=== PATIENT | female | born 1945 | race African-American/Black ===

== ENCOUNTER 2017-01-22 09:52 | Observation (INO) | payer MEDICARE, OTHER ==
[~2017-01-22] VITALS: Ht 165.1 cm; Wt 82.9 kg
[2017-01-22] VITALS (11 sets, daily range): BP systolic 109–140; BP diastolic 59–86; PULSE 65–87; RESP 16–18; TEMP 97.9–98.5; O2SAT 97–99
[~2017-01-22 09:52] MED LIST: AMIT1TAB79 PO; ATEN50TA PO; CARA1TAB6 PO; CHLO25TA2 PO; COQ1100C PO; DIPH25CA PO; ERGO1CAP10 PO; ESTR42.5V VAGINAL; IBUP800T23 PO; LEVO.1 PO; MULT1TAB84 PO; OMEP20TA PO; OXYB10TA PO; POTA10TA2 PO
[2017-01-22 10:30] LABS: AUTOMATED NEUTROPHIL # 2.5 TH/MM3 (1.8-7.7); BASOPHIL # 0.1 TH/MM3 (0-0.2); BASOPHIL % 2.7 % (0.0-2.0); HEMATOCRIT 37.3 % (35.0-46.0); HEMO FLAGS DIFF FINAL; LYMPH % 37.6 % (9.0-44.0); LYMPHOCYTE # 1.9 TH/MM3 (1.0-4.8); MEAN CELL VOLUME 79.9 FL (80.0-100.0); MEAN CORPUSCULAR HEMOGLOBIN 25.8 PG (27.0-34.0); MEAN CORPUSCULAR HGB CONC 32.3 % (32.0-36.0); MONO % 8.4 % (0.0-8.0); NEUT % 50.3 % (16.0-70.0); PLATELET COUNT 239 TH/MM3 (150-450); RED BLOOD COUNT 4.67 MIL/MM3 (4.00-5.30); RED CELL DISTRIBUTION WIDTH 15.2 % (11.6-17.2); WHITE BLOOD COUNT 4.9 TH/MM3 (4.0-11.0)
[2017-01-22] MEDS ORDERED: SODIUM CHLORIDE 0.9% FLUSH 10 ML FLUSH IVF PRN (10:30)
--- NOTE | 2017-01-22 10:32 | PD ---
HPI Chief Complaint: Numbness/Tingling Time Seen by Provider: 09:58 Travel History International Travel<30 days: No Contact w/Intl Traveler<30days: No Traveled to known affect area: No History of Present Illness HPI The patient is a 71-year-old Luz female who presents emergency department for right arm weakness. The patient states she was using electric razor earlier today with a right hand, terminal left aspect of her neck, when her right arm suddenly went limp. The patient felt like she had a "out of body experience ", while looking at her right arm and states she had difficulty using the right arm for approximately 1 minute. The patient states that the inability to use the arm resolved after 1 minute, however, she still has heaviness in the right shoulder and upper extremity. She denies any numbness or tingling to the right upper extremity, but does note a history of cramping of the hands bilateral which are painful. The patient denied any weakness or numbness of the lower extremities and denied any dysarthria. She did complain of mild dizziness during her symptoms which have currently resolved. The patient does have a history of hypertension and borderline hyperlipidemia, denies any history tobacco use, diabetes, CAD, or previous CVA/TIA. The patient 's primary physician is Dr. Contreras. [facility] Past Medical History Arthritis: Yes (RIGHT KNEE) High Cholesterol: Yes Hypertension: Yes Inguinal Hernia: Yes (UMBVILICAL AND INGUINAL) Kidney Stones: Yes Thyroid Disease: Yes ?: Not Tubal Ligation: Yes Past Surgical History Hysterectomy: Yes Social History Alcohol Use: Yes (SOCIALLY) Tobacco Use: No Substance Use: No Allergies-Medications (Allergen,Severity, Reaction): Coded Allergies: Sulfa (Verified Allergy, Severe, HIVES, 01/22/17) Talwin (Verified Allergy, Severe, Hallucinations, 01/22/17) Uncoded Allergies: seldane (Allergy, Severe, 01/07/16) palpitations Reported Meds & Prescriptions Reported Meds & Active Scripts Active Oxybutynin ER 24 HR (Oxybutynin Chloride) 10 Mg Tab 10 Mg PO BID Reported Vitamin D (Ergocalciferol) 50,000 Unit Cap 50,000 Units PO Q 30 DAYS Synthroid (Levothyroxine Sodium) 100 Mcg Tab 100 Mcg PO DAILY Potassium Chloride ER (Potassium Chloride) 10 Meq Tab 10 Meq PO DAILY Elavil (Amitriptyline HCl) 25 Mg Tab 10 Mg PO DAILY Diphenhydramine (Diphenhydramine HCl) 25 Mg Cap 50 Mg PO HS PRN Coq10 (Coenzyme Q10 (Ubidecarenone)) 100 Mg Cap 100 Mg PO DAILY Chlorthalidone 25 Mg Tab 25 Mg PO DAILY Atenolol 50 Mg Tab 50 Mg PO DAILY Carafate (Sucralfate) 1 Gm Tab 1 Gm PO DIRECTED On empty stomach Omeprazole 20 Mg Tab 20 Mg PO DAILY Review of Systems Except as stated in HPI: all other systems reviewed are Neg General / Constitutional: No: Fever Eyes: No: Blurred Vision, Visual changes HENT: Positive: Lightheadedness, No: Headaches, Neck Pain Cardiovascular: No: Chest Pain or Discomfort, Palpitations, Tachycardia Respiratory: No: Shortness of Breath Gastrointestinal: No: Nausea, Vomiting, Abdominal Pain Musculoskeletal: Positive: Weakness Neurologic: Positive: Weakness, Dizziness, Focal Abnormalities, No: Change in Mentation, Slurred Speech, Paresthesia, Sensory Disturbance Physical Exam Narrative GENERAL: Awake, alert, pleasant 71-year-old female who appears her stated age and is in no acute respiratory distress. SKIN: Focused skin assessment warm/dry. HEAD: Atraumatic. Normocephalic. EYES: Pupils equal and round. Pupils are 3 mm bilateral and reactive. EOMs are intact. Patient is able to see fingers at a distance of 2 feet without difficulty. ENT: No nasal bleeding or discharge. Mucous membranes pink and moist. NECK: Trachea midline. No JVD. CARDIOVASCULAR: Regular rate and rhythm. No murmur appreciated. RESPIRATORY: No accessory muscle use. Clear to auscultation. Breath sounds equal bilaterally. GASTROINTESTINAL: Abdomen soft, non-tender, nondistended. No rebound tenderness. MUSCULOSKELETAL: No obvious deformities. No clubbing. No cyanosis. No edema. NEUROLOGICAL: Awake and alert. No obvious cranial nerve deficits. Motor grossly within normal limits. Normal speech. No drift of the upper or lower extremities. Speech is clear, no dysarthria. Smile is symmetric. Tongue is midline. Finger to nose is normal. Gkca-ry-zlig is normal. Visual boogie are symmetric bilaterally. EOMs are intact and patient is able to see fingers at a distance of 2 feet without difficulty. NIHSS 0. PSYCHIATRIC: Appropriate mood and affect; insight and judgment normal. Data Data Last Documented VS Vital Signs Date Time Temp Pulse Resp B/P Pulse Ox O2 Delivery O2 Flow Rate FiO2 01/22/17 10:57 66 16 139/86 98 01/22/17 10:10 Room Air 01/22/17 09:55 98.1 Orders Electrocardiogram (01/22/17 10:16) Prothrombin Time / Inr (Pt) (01/22/17 10:16) Act Partial Throm Time (Ptt) (01/22/17 10:16) Complete Blood Count With Diff (01/22/17 10:16) Comprehensive Metabolic Panel (01/22/17 10:16) Creatine Kinase (Cpk) (01/22/17 10:16) Troponin I (01/22/17 10:16) Ct Brain W/O Iv Contrast(Rout) (01/22/17 10:16) Chest, Single Ap (01/22/17 10:16) Ecg Monitoring (01/22/17 10:16) Iv Access Insert/Monitor (01/22/17 10:16) Oximetry (01/22/17 10:16) Sodium Chloride 0.9% Flush (Ns Flush) (01/22/17 10:30) Aspirin (Aspirin) (01/22/17 11:00) Labs Laboratory Tests Test 01/22/17 10:20 White Blood Count 4.9 TH/MM3 Red Blood Count 4.67 MIL/MM3 Hemoglobin 12.1 GM/DL Hematocrit 37.3 % Mean Corpuscular Volume 79.9 FL Mean Corpuscular Hemoglobin 25.8 PG Mean Corpuscular Hemoglobin 32.3 % Concent Red Cell Distribution Width 15.2 % Platelet Count 239 TH/MM3 Mean Platelet Volume 8.9 FL Neutrophils (%) (Auto) 50.3 % Lymphocytes (%) (Auto) 37.6 % Monocytes (%) (Auto) 8.4 % Eosinophils (%) (Auto) 1.0 % Basophils (%) (Auto) 2.7 % Neutrophils # (Auto) 2.5 TH/MM3 Lymphocytes # (Auto) 1.9 TH/MM3 Monocytes # (Auto) 0.4 TH/MM3 Eosinophils # (Auto) 0.0 TH/MM3 Basophils # (Auto) 0.1 TH/MM3 CBC Comment DIFF FINAL Differential Comment Prothrombin Time 10.3 SEC Prothromb Time International 0.9 RATIO Ratio Activated Partial 25.7 SEC Thromboplast Time Sodium Level 142 MEQ/L Potassium Level 4.1 MEQ/L Chloride Level 103 MEQ/L Carbon Dioxide Level 27.5 MEQ/L Anion Gap 12 MEQ/L Blood Urea Nitrogen 19 MG/DL Creatinine 1.00 MG/DL Estimat Glomerular Filtration 66 ML/MIN Rate Random Glucose 94 MG/DL Calcium Level 9.2 MG/DL Total Bilirubin 0.6 MG/DL Aspartate Amino Transf 46 U/L (AST/SGOT) Alanine Aminotransferase 37 U/L (ALT/SGPT) Alkaline Phosphatase 122 U/L Total Creatine Kinase 154 U/L Troponin I LESS THAN 0.02 NG/ML Total Protein 7.3 GM/DL Albumin 3.0 GM/DL [facility] Medical Decision Making Medical Screen Exam Complete: Yes Emergency Medical Condition: Yes Medical Record Reviewed: Yes Interpretation(s) EKG reveals normal sinus rhythm with a rate of 67. No ischemic changes or ectopy noted. CT of the head without contrast reveals an unremarkable study. Chest x-ray unremarkable Laboratory Tests Test 01/22/17 10:20 White Blood Count 4.9 TH/MM3 Red Blood Count 4.67 MIL/MM3 Hemoglobin 12.1 GM/DL Hematocrit 37.3 % Mean Corpuscular Volume 79.9 FL Mean Corpuscular Hemoglobin 25.8 PG Mean Corpuscular Hemoglobin 32.3 % Concent Red Cell Distribution Width 15.2 % Platelet Count 239 TH/MM3 Mean Platelet Volume 8.9 FL Neutrophils (%) (Auto) 50.3 % Lymphocytes (%) (Auto) 37.6 % Monocytes (%) (Auto) 8.4 % Eosinophils (%) (Auto) 1.0 % Basophils (%) (Auto) 2.7 % Neutrophils # (Auto) 2.5 TH/MM3 Lymphocytes # (Auto) 1.9 TH/MM3 Monocytes # (Auto) 0.4 TH/MM3 Eosinophils # (Auto) 0.0 TH/MM3 Basophils # (Auto) 0.1 TH/MM3 CBC Comment DIFF FINAL Differential Comment Prothrombin Time 10.3 SEC Prothromb Time International 0.9 RATIO Ratio Activated Partial 25.7 SEC Thromboplast Time Sodium Level 142 MEQ/L Potassium Level 4.1 MEQ/L Chloride Level 103 MEQ/L Carbon Dioxide Level 27.5 MEQ/L Anion Gap 12 MEQ/L Blood Urea Nitrogen 19 MG/DL Creatinine 1.00 MG/DL Estimat Glomerular Filtration 66 ML/MIN Rate Random Glucose 94 MG/DL Calcium Level 9.2 MG/DL Total Bilirubin 0.6 MG/DL Aspartate Amino Transf 46 U/L (AST/SGOT) Alanine Aminotransferase 37 U/L (ALT/SGPT) Alkaline Phosphatase 122 U/L Total Creatine Kinase 154 U/L Troponin I LESS THAN 0.02 NG/ML Total Protein 7.3 GM/DL Albumin 3.0 GM/DL Last Impressions Head CT 01/22/17 1016 Signed Impressions: Service Date/Time: Sunday, January 22, 2017 10:35 - CONCLUSION: Unremarkable study. Ann Resendiz MD Differential Diagnosis Differential diagnoses includes TIA, CVA, intracranial hemorrhage, subclavian steal syndrome, transient neurologic deficit, hypercalcemia, hypocalcemia. Narrative Course IV was established, labs were drawn and sent, and the patient was placed on cardiac telemetry monitoring and continuous pulse oximetry monitoring. EKG was ordered and interpreted. CT the brain was obtained. Aspirin was held until CT the brain was performed. The patient stroke scale was 0 upon arrival, therefore , no stroke alert was called. The patient's onset of symptoms were 9:30 AM, however, her stroke scale is 0. CT the brain is negative, therefore, the patient was administered aspirin 325 mg orally. The patient's stroke scale continues to be 0, her right arm weakness has resolved. Calcium sodium levels are unremarkable. I had a discussion with the patient regarding 23 hour observation for echocardiogram and ultrasound of the carotids versus outpatient testing with her primary physician, Dr. Contreras. The patient is concerned because she lives alone, therefore, would prefer 23 hour observation. Therefore , the on-call medical team was paged for 23 hour observation. Patient may benefit from risk factor stratification including lipid panel, ultrasound of the carotids, and echocardiogram. Patient is comfortable with this plan of care. Physician Communication Physician Communication The on-call medical team was paged for 23 hour observation. I discussed the patient with Dr. Xiao who agrees with 23 hour observation. Diagnosis Primary Impression: Transient neurologic deficit Admitting Information Admitting Physician Requests: Observation Condition: Stable Ruben Avendano MD Jan 22, 2017 10:31
[2017-01-22 10:44] LABS: CHLORIDE 103 MEQ/L (98-107); POTASSIUM 4.1 MEQ/L (3.5-5.1); SODIUM (NA) 142 MEQ/L (136-145)
[2017-01-22 10:48] LABS: ANION GAP 12 MEQ/L (5-15); BICARBONATE 27.5 MEQ/L (21.0-32.0); BLOOD UREA NITROGEN 19 MG/DL (7-18)
[2017-01-22 10:49] LABS: APTT (PATIENT) 25.7 SEC (24.3-30.1); INTERNATIONAL NORMALIZED RATIO 0.9 RATIO; PROTHROMBIN TIME - PATIENT 10.3 SEC (9.8-11.6)
--- NOTE | 2017-01-22 10:49 | RADHPO ---
EXAM DATE/TIME: 01/22/2017 10:35 [facility] COMPARISON: No previous studies available for comparison. INDICATIONS : Right upper extremity numbness. RADIATION DOSE: 63.89 CTDIvol (mGy) MEDICAL HISTORY : Hypertension. SURGICAL HISTORY : Tonsillectomy. ENCOUNTER: Initial ACUITY: 1 day PAIN SCALE: 0/10 LOCATION: cranial TECHNIQUE: Multiple contiguous axial images were obtained of the head. Using automated exposure control and adj ustment of the mA and/or kV according to patient size, radiation dose was kept as low as reasonably a chievable to obtain optimal diagnostic quality images. FINDINGS: There is no evidence for intracranial hemorrhage, mass effect, mass lesions, edema, or extra-axial fl uid collections. The visualized bony structures appear intact. The ventricles are normal size for t he patient's age. There are no signs of acute infarction for technique. CONCLUSION: Unremarkable study. Ann Resendiz MD on January 22, 2017 at 10:46 Board Certified Radiologist. This report was verified electronically.
[2017-01-22 10:51] LABS: ALT (GPT) 37 U/L (10-53); AST (GOT) 46 U/L (15-37); GLOMERULAR FILTRATION RATE 66 ML/MIN (>89)
[2017-01-22 10:53] LABS: TOTAL BILIRUBIN ADULT 0.6 MG/DL (0.2-1.0)
[2017-01-22 10:54] LABS: ALKALINE PHOSPHATASE 122 U/L (45-117); CREATINE KINASE 154 U/L (26-192)
[2017-01-22] MEDS ORDERED: ASPIRIN 325 MG TAB PO ONE (11:00)
[2017-01-22] MEDS ORDERED: DEXTROSE 50% IN WATER 50 ML VIAL(D50) IV PUSH PRN (11:30)
[2017-01-22] MEDS ORDERED: ENALAPRILAT 1.25 MG/ML VIAL IV PRN (11:30)
[2017-01-22] MEDS ORDERED: ALUMINUM/MAGNESIUM/SIMETH 30 ML CUP PO PRN (11:30)
[2017-01-22] MEDS ORDERED: ACETAMINOPHEN 325 MG TAB PO PRN (11:30)
[2017-01-22] MEDS ORDERED: GLUCAGON 1 MG/ML VIAL IM/SQ PRN (11:30)
[2017-01-22] MEDS ORDERED: CALCIUM CARBONATE 500 MG CHEWABLE TAB CHEW PRN (11:30)
[2017-01-22] MEDS ORDERED: ONDANSETRON HCL 4 MG/2 ML VIAL IV PRN (11:30)
[2017-01-22] MEDS ORDERED: MAGNESIUM HYDROXIDE SUSP 30 ML CUP PO PRN (11:30)
[2017-01-22] MEDS ORDERED: DOCUSATE SODIUM 100 MG CAP PO PRN (11:30)
[2017-01-22] MEDS ORDERED: SODIUM CHLORIDE 0.9% FLUSH 10 ML FLUSH IV FLUSH PRN (11:30)
[2017-01-22] MEDS: SODIUM CHLOR 0.9% 1000 ML INJ 1,000 ML IV SCH (11:41)
--- NOTE | 2017-01-22 11:42 | RADHPO ---
EXAM DATE/TIME: 01/22/2017 10:47 [facility] COMPARISON: CHEST SINGLE AP, January 13, 2014, 21:59. INDICATIONS : Weakness down right arm. CVA symptoms. MEDICAL HISTORY : None. SURGICAL HISTORY : None. ENCOUNTER: Initial ACUITY: 1 day PAIN SCORE: 2/10 LOCATION: Bilateral chest FINDINGS: The lungs are clear without infiltrate, nodule, or mass. There is no appreciable pleural effusion fo r technique. Heart and mediastinum are unremarkable. CONCLUSION: No acute cardiopulmonary disease. Ann Resendiz MD on January 22, 2017 at 11:39 Board Certified Radiologist. This report was verified electronically.
--- NOTE | 2017-01-22 13:23 | HHI.HP ---
[facility] Javier Contreras MD Admission Diagnosis transient neurologic deficit, rule out TIA Diagnoses: (1) Transient neurologic deficit Diagnosis: Principal Chief Complaint: Right arm neurological deficit Travel History International Travel<30 Days: No Contact w/Intl Traveler <30 Da: No Traveled to Known Affected Are: No History of Present Illness 71-year-old female with known history of hypertension, hyperlipidemia , hypothyroidism who presented to hospital because of acute self-limiting neurological abnormality to the right upper extremity. Patient states that she was in her normal state of health until this morning when she was using hair trimmmer to cut some hair on her neck. Patient states that she is using her right handed do so with reaching at behind her neck over her head, while she was doing this she had a sudden onset of unable to use her right arm. She states that it went limp to her right side. She explained as if she felt as if it was not even a part of her body at that time, it was as if her arm was cut off. However she does not recall dropping that hair juan or having to bent over to pick it up. She states that there was a period of time that lasted for approximately 1 minute that she felt as if she may have had like an out of body experience, some possible blurred vision. After that she regained full function of her arm and no longer had any cloudiness to her thought or memory. Because of that reason she came to emergency department for evaluation. Patient has CT scan done of the brain which was negative. Is recommended the patient be observed for neurological evaluation. Patient denies any neurological symptoms at this time. She denied any lightheadedness, dizziness, ataxia, difficulty in speech. Review of Systems Constitutional: DENIES: Diaphoretic episodes, Fatigue, Fever, Weight gain, Weight loss, Chills, Dizziness, Change in appetite, Night Sweats Eyes: DENIES: Blurred vision, Diplopia, Eye inflammation, Eye pain, Vision loss , Double Vision Ears, nose, mouth, throat: DENIES: Vertigo, Nasal discharge, Throat pain, Ear Pain, Running Nose, Sinus Pain Respiratory: DENIES: Apneas, Cough, Snoring, Wheezing, Hemoptysis, Sputum production, Shortness of breath Cardiovascular: DENIES: Chest pain, Palpitations, Syncope, Dyspnea on Exertion , Lower Extremity Edema, Orthopnea Gastrointestinal: DENIES: Abdominal pain, Black stools, Bloody stools, Constipation, Diarrhea, Nausea, Vomiting, Difficulty Swallowing, Anorexia Musculoskeletal: DENIES: Joint pain, Muscle aches, Stiffness, Joint Swelling, Back pain, Neck pain Neurologic: COMPLAINS OF: Localized weakness (right), DENIES: Abnormal gait, Headache, Paresthesias, Seizures, Speech Problems, Tremor, Poor Balance Past Family Social History Past Medical History Hypertension Hypothyroidism Hyperlipidemia Anxiety Past Surgical History Tonsillectomy Bilateral cataract surgery Tubal ligation Partial hysterectomy Bladder sling Bilateral inguinal hernia repair Left breast lumpectomy Varicose vein stripping in the right leg Hemorrhoidectomy Reported Medications Reported Meds & Active Scripts Active Oxybutynin ER 24 HR (Oxybutynin Chloride) 10 Mg Tab 10 Mg PO BID Reported Vitamin D (Ergocalciferol) 50,000 Unit Cap 50,000 Units PO Q 30 DAYS Synthroid (Levothyroxine Sodium) 100 Mcg Tab 100 Mcg PO DAILY Potassium Chloride ER (Potassium Chloride) 10 Meq Tab 10 Meq PO DAILY Elavil (Amitriptyline HCl) 25 Mg Tab 10 Mg PO DAILY Diphenhydramine (Diphenhydramine HCl) 25 Mg Cap 50 Mg PO HS PRN Coq10 (Coenzyme Q10 (Ubidecarenone)) 100 Mg Cap 100 Mg PO DAILY Chlorthalidone 25 Mg Tab 25 Mg PO DAILY Atenolol 50 Mg Tab 50 Mg PO DAILY Carafate (Sucralfate) 1 Gm Tab 1 Gm PO DIRECTED On empty stomach Omeprazole 20 Mg Tab 20 Mg PO DAILY Allergies: Coded Allergies: Sulfa (Verified Allergy, Severe, HIVES, 01/22/17) Talwin (Verified Allergy, Severe, Hallucinations, 01/22/17) Uncoded Allergies: seldane (Allergy, Severe, 01/07/16) palpitations Family History Reviewed is significant for heart disease, diabetes Social History Patient drink alcohol rarely. Denies any tobacco or illicit drugs Physical Exam Vital Signs Vital Signs Date Time Temp Pulse Resp B/P Pulse Ox O2 Delivery O2 Flow Rate FiO2 01/22/17 12:30 98.0 65 18 135/86 98 01/22/17 12:00 67 16 115/59 99 Room Air 01/22/17 10:57 66 16 139/86 98 01/22/17 10:30 98 21 01/22/17 10:10 16 99 01/22/17 10:10 16 99 Room Air 01/22/17 09:55 98.1 73 16 140/86 99 Physical Exam GENERAL: Well-developed, well-nourished, in no acute distress. alert and orientated HEENT: Head is normocephalic without any lesions or masses noted. Facial features are symmetric. Eyes: Pupils equal round reactive to light. Extraocular muscles are intact. Conjunctivae were clear. Oropharyngeal: Pharynx without any erythema edema. Tongue is midline without deviation. Buccal mucosa is moist without any masses or lesions NECK: Supple without any masses. Trachea midline no deviation. No JVD, no bruits are appreciated CARDIAC: Regular rhythm, regular rate. S1/S2 are heard. No murmurs gallops or rubs. LUNGS: Clear to auscultation bilaterally. No wheeze, rhonchi or rales. No use of accessory muscles on inspiration or expiration. ABDOMEN: Soft, nontender. Nondistended. Bowel sounds heard in all 4 quadrants. No organomegaly or masses. Negative rebound, negative guarding EXTREMITIES: No edema, pulses are equal bilaterally. No cyanosis or clubbing NEUROLOGY: Mood and affect appear appropriate. Cranial nerves II through XII grossly intact. Muscle strength 5/5 in upper and lower extremities bilaterally. Deep tendon reflexes are 2+ in upper and lower extremities bilaterally. Laboratory Laboratory Tests Test 01/22/17 10:20 White Blood Count 4.9 Red Blood Count 4.67 Hemoglobin 12.1 Hematocrit 37.3 Mean Corpuscular Volume 79.9 Mean Corpuscular Hemoglobin 25.8 Mean Corpuscular Hemoglobin 32.3 Concent Red Cell Distribution Width 15.2 Platelet Count 239 Mean Platelet Volume 8.9 Neutrophils (%) (Auto) 50.3 Lymphocytes (%) (Auto) 37.6 Monocytes (%) (Auto) 8.4 Eosinophils (%) (Auto) 1.0 Basophils (%) (Auto) 2.7 Neutrophils # (Auto) 2.5 Lymphocytes # (Auto) 1.9 Monocytes # (Auto) 0.4 Eosinophils # (Auto) 0.0 Basophils # (Auto) 0.1 CBC Comment DIFF FINAL Differential Comment Prothrombin Time 10.3 Prothromb Time International 0.9 Ratio Activated Partial 25.7 Thromboplast Time Sodium Level 142 Potassium Level 4.1 Chloride Level 103 Carbon Dioxide Level 27.5 Anion Gap 12 Blood Urea Nitrogen 19 Creatinine 1.00 Estimat Glomerular Filtration 66 Rate Random Glucose 94 Calcium Level 9.2 Total Bilirubin 0.6 Aspartate Amino Transf 46 (AST/SGOT) Alanine Aminotransferase 37 (ALT/SGPT) Alkaline Phosphatase 122 Total Creatine Kinase 154 Troponin I LESS THAN 0.02 Total Protein 7.3 Albumin 3.0 Result Diagram: 01/22/17 1020 01/22/17 1020 Imaging Last Impressions Head CT 01/22/17 1016 Signed Impressions: Service Date/Time: Sunday, January 22, 2017 10:35 - CONCLUSION: Unremarkable study. Ann Resendiz MD Chest X-Ray 01/22/17 1016 Signed Impressions: Service Date/Time: Sunday, January 22, 2017 10:47 - CONCLUSION: No acute cardiopulmonary disease. Ann Resendiz MD Assessment and Plan Assessment and Plan Transient neurological deficit with right arm paralysis: Symptoms have resolved at this time. She needs workup for TIA. CT scan of the brain was unremarkable. Awaiting MRI of brain, carotid ultrasound, echocardiogram, further laboratory studies to include B12, folate, TSH, sedimentation rate, lipid panel. Awaiting PT/OT evaluations. Continue head of bed flat, continue permissive hypertension, patient started on full dose aspirin Hypertension: Permissive at this time. Resume home medications for blood pressure management 2448 hours Hyperlipidemia: Patient used to be on medication, however she does not know the reason why she stopped taking it. Awaiting lipid panel. Of note patient has mildly elevated AST Hypothyroidism: Check TSH, resumed replacement therapy DVT prevention: Sequential compression devices Written by Melvin Turcios, acting as scribe for Dr. Xiao on 01/22/17 at 13: 22. This note was transcribed by scribe Melvin Turcios I, Dr. Thierno Xiao personally performed the history, physical exam, and medical decision making; and confirmed the accuracy of the information in the transcribed note. Authenticated by Dr. Thierno Xiao on 01/22/17 at 15:12. Melvin Turcios Jan 22, 2017 13:23 Thierno Xiao MD Jan 22, 2017 15:13
--- NOTE | 2017-01-22 13:36 | RADHPO ---
EXAM DATE/TIME: 01/22/2017 12:39 [facility] COMPARISON: No previous studies available for comparison. INDICATIONS : Syncope. Right arm numbness. MEDICAL HISTORY : Hypothyroidism. Hypercholesterolemia. Osteoarthritis. Kidney stones. Hypertension. SURGICAL HISTORY : Tubal ligation. Hysterectomy. Tonsillectomy. ENCOUNTER: Initial ACUITY: 1 day PAIN SCORE: 10 LOCATION: Bilateral neck PEAK SYSTOLIC VELOCITIES (cm/sec): ICA/CCA RATIO: Right: 1.6 Left: 0.9 ICA: Right: 114 Left: 93 CCA: Right: 69 Left: 101 ECA: Right: 80 Left: 81 VERTEBRAL: Right: 63 antegrade Left: 43 antegrade Elevated flow velocities and ICA/CCA ratios have been found to correlate with increased degrees of vessel stenosis, calculated as percentage of diameter relative to a normal segment of distal ICA/CCA FINDINGS: Antegrade flow is seen in both vertebral arteries. There is mild atherosclerotic plaquing at the orig in of both ICAs without any significant stenosis. CONCLUSION: No evidence for hemodynamically significant stenosis. Ann Resendiz MD on January 22, 2017 at 13:34 Board Certified Radiologist. This report was verified electronically.
[2017-01-22] MEDS ORDERED: ASPI1TAB69 PO (15:18)
--- NOTE | 2017-01-22 15:18 | HHI.DCPOC ---
Discharge Care Plan Diagnosis: (1) Transient neurologic deficit Your Health Problems Are: Difficulty with ADL Exercise Tolerance Goals to Promote Your Health * To prevent worsening of your condition and complications * To maintain your health at the optimal level Directions to Meet Your Goals Take your medications as prescribed Follow your dietary instruction Follow activity as directed Keep your appointments as scheduled Take your immunizations and boosters as scheduled If your symptoms worsen call your PCP, if no PCP go to Urgent Care Center or Emergency Room Smoking is Dangerous to Your Health. Avoid second hand smoke Call the 24-hour hour crisis hotline for domestic abuse at Thierno Xiao MD Jan 22, 2017 15:18
[2017-01-22 15:20] LABS: BLOOD, URINE NEG (NEG); GLUCOSE,URINE NEG (NEG); KETONE, URINE NEG (NEG); NITRITE,URINE NEG (NEG)
[2017-01-22 15:33] LABS: BACTERIA, URINE MOD /hpf; COMMENT (UR) CULTURE INDICATED; CULTURE IF INDICATED CULTURE INDICATED; METHOD OF COLLECTION CLEAN CATCH; RBC, URINE 0-3 /hpf (0-3); SQUAMOUS EPITHELIAL CELL URINE 0-5 /hpf (0-5); URINE COLOR YELLOW (YELLW/STRAW); WBC, URINE 0-2 /hpf (0-5)
[2017-01-22] MEDS: INSULIN ASPART SUPPLEMENTAL SCALE SQ SCH ×2 (16:00→21:00)
[2017-01-22] MEDS: SODIUM CHLORIDE 0.9% FLUSH 10 ML FLUSH IV FLUSH SCH (21:00)
[2017-01-23] VITALS: BP 119/63; PULSE 68; RESP 16; TEMP 97.6; O2SAT 98
[2017-01-23] MEDS: SODIUM CHLOR 0.9% 1000 ML INJ 1,000 ML IV SCH ×2 (01:48→02:52)
[2017-01-23 04:00] VITALS: BP 118/70; PULSE 65; RESP 18; TEMP 97.2; O2SAT 99
[2017-01-23] MEDS: INSULIN ASPART SUPPLEMENTAL SCALE SQ SCH ×2 (05:54→11:00)
[2017-01-23] MEDS ORDERED: LEVOTHYROXINE SODIUM 100 MCG TAB PO SCH (06:00)
[2017-01-23 08:00] VITALS: BP 129/78; PULSE 66; RESP 20; TEMP 97.9; O2SAT 98
[2017-01-23 08:50] VITALS: PULSE 76
[2017-01-23] MEDS: SODIUM CHLORIDE 0.9% FLUSH 10 ML FLUSH IV FLUSH SCH (08:55)
[2017-01-23] MEDS ORDERED: PANTOPRAZOLE SOD 20 MG DELAYED RELEASE TAB PO SCH (09:00)
[2017-01-23] MEDS ORDERED: AMITRIPTYLINE HCL 10 MG TAB PO SCH (09:00)
[2017-01-23] MEDS ORDERED: ASPIRIN 325 MG TAB PO SCH (09:00)
[2017-01-23 09:51] LABS: HDL CHOLESTEROL 94.7 MG/DL (40.0-60.0)
--- NOTE | 2017-01-23 10:11 | HHI.PR ---
Subjective Remarks Patient seen and examined today with Dr. Xiao for follow-up on transient neurological symptoms. Patient indicates that she has not had any reoccurrence of her right arm numbness/paralysis. We are still awaiting workup be completed with echocardiogram and MRI study. Patient had multiple questions concerning her condition. Dr. Xiao answered all of her questions and explained her condition in detail in treatment. Patient has not had any other symptoms to include visual disturbances, ataxia, recurrent numbness or tingling, difficulty eating or speaking Objective Vitals Vital Signs Date Time Temp Pulse Resp B/P Pulse Ox O2 Delivery O2 Flow Rate FiO2 01/23/17 08:00 97.9 66 20 129/78 98 01/23/17 04:00 97.2 65 18 118/70 99 01/23/17 00:00 97.6 68 16 119/63 98 01/22/17 23:00 74 01/22/17 20:26 98.5 70 18 109/63 97 01/22/17 19:48 98 21 01/22/17 16:00 97.9 68 18 121/73 98 01/22/17 14:28 87 01/22/17 12:30 98.0 65 18 135/86 98 01/22/17 12:00 67 16 115/59 99 Room Air 01/22/17 10:57 66 16 139/86 98 01/22/17 10:30 98 21 01/22/17 10:10 16 99 01/22/17 10:10 16 99 Room Air I/O 01/22/17 01/22/17 01/22/17 01/23/17 01/23/17 01/23/17 07:00 15:00 23:00 07:00 15:00 23:00 Intake Total 900 ml 1191 ml Balance 900 ml 1191 ml Intake IV Total 900 ml 1191 ml # Voids 6 # Bowel Movements 1 Result Diagram: 01/22/17 1020 01/22/17 1020 Imaging Last Impressions Head CT 01/22/17 1016 Signed Impressions: Service Date/Time: Sunday, January 22, 2017 10:35 - CONCLUSION: Unremarkable study. Ann Resendiz MD Chest X-Ray 01/22/17 1016 Signed Impressions: Service Date/Time: Sunday, January 22, 2017 10:47 - CONCLUSION: No acute cardiopulmonary disease. Ann Resendiz MD Carotid Artery Ultrasound 01/22/17 0000 Signed Impressions: Service Date/Time: Sunday, January 22, 2017 12:39 - CONCLUSION: No evidence for hemodynamically significant stenosis. Ann Resendiz MD Objective Remarks GENERAL: Well-developed, well-nourished, in no acute distress. alert and orientated HEENT: Head is normocephalic without any lesions or masses noted. Facial features are symmetric. Eyes: Extraocular muscles are intact. Conjunctivae were clear. NECK: Supple without any masses. Trachea midline no deviation. No JVD, CARDIAC: Regular rhythm, regular rate. S1/S2 are heard. No murmurs gallops or rubs. LUNGS: Clear to auscultation bilaterally. No wheeze, rhonchi or rales. No use of accessory muscles on inspiration or expiration. ABDOMEN: Soft, nontender. Nondistended. Bowel sounds heard in all 4 quadrants. No organomegaly or masses. Negative rebound, negative guarding EXTREMITIES: No edema, pulses are equal bilaterally. No cyanosis or clubbing NEUROLOGY: Mood and affect appear appropriate. Cranial nerves II through XII grossly intact. Moving all extremities, speech is clear Urinary Catheter: No Vascular Central Line Catheter: No A/P Problem List: (1) Transient neurologic deficit ICD Code: R29.818 Status: Acute Assessment and Plan Transient neurological deficit with right arm paralysis: Symptoms have resolved at this time. CT scan of the brain was unremarkable. Carotid ultrasound was normal. Further laboratory studies to include B12, folate, TSH were unremarkable. Mildly elevated sedimentation rate. Significantly elevated LDL. Physical therapy evaluated patient and indicates patient's home with no PT recommendations. Speech therapy evaluated patient indicates patient be on a regular diet and no outpatient ST. Unremarkable MRI of brain, echocardiogram. Advance activity, dc permissive hypertension, patient continue full dose aspirin. A1c pending Hypertension: Stable Resume home medications for blood pressure management Hyperlipidemia: LDL 131, start Lipitor 40 mg daily discessed pros and cons use of statins. Mildly elevated AST. This will need to monitor closely in outpatient setting. Hypothyroidism: TSH 2.43. Resumed replacement therapy DVT prevention: Sequential compression devices Written by Melvin Turcios, acting as scribe for Dr. Xiao on 01/23/17 at 10: 06. This note was transcribed by scribe Melvin Turcios. I, Dr. Thierno Xiao personally performed the history, physical exam, and medical decision making; and confirmed the accuracy of the information in the transcribed note. Authenticated by Dr. Thierno Xiao on 01/23/17 at 14:30. Discharge Planning Discharge planning after MRI and echocardiogram results are reviewed Activity: Ad jadiel., no driving for 1 week Diet: Healthy heart diet Medications per medication reconciliation Lipitor 40 mg daily Aspirin 325 mg daily next line Follow-up primary medical doctor in one week Melvin Turcios Jan 23, 2017 10:11 Thierno Xiao MD Jan 23, 2017 14:30
[2017-01-23 11:39] VITALS: BP 125/75; PULSE 71; RESP 20; TEMP 98.3; O2SAT 100
--- NOTE | 2017-01-23 11:43 | RADHPO ---
EXAM DATE/TIME: 01/23/2017 10:48 [facility] COMPARISON: CT BRAIN W/O CONTRAST, January 22, 2017, 10:35. INDICATIONS : TIA. MEDICAL HISTORY : Hypercholesterolemia. Hypertension. Hypothyroidism. Breast cancer. SURGICAL HISTORY : Tonsillectomy. Hysterectomy. Hemorrhoidectomy. Bladder sling sx. ENCOUNTER: Initial ACUITY: 2 day PAIN SCORE: 0/10 LOCATION: Bilateral cranial TECHNIQUE: Multiplanar, multisequence MRI of the brain was performed without contrast. FINDINGS: There is no evidence for intracranial hemorrhage, mass effect, mass lesions, edema, or extra-axial fl uid collections. The ventricles are normal size for the patient's age. There are no signs of acute infarction for technique. The diffusion portion is unremarkable. IMPRESSION: Unremarkable study. Ann Resendiz MD on January 23, 2017 at 11:34 Board Certified Radiologist. This report was verified electronically.
--- NOTE | 2017-01-23 11:55 | EKG ---
Date Performed: 01/22/2017 Time Performed: 10:02:42 PTAGE: 71 years EKG: Sinus rhythm Normal ECG PREVIOUS TRACING : 01/13/2014 21.57 Compared to prior tracing no significant change DOCTOR: Jimi Gil Interpretating Date/Time 01/23/2017 11:54:17
[2017-01-23] MEDS ORDERED: POTASSIUM CHLORIDE 10 MEQ CONTROLLED RELEASE TAB PO SCH (12:00)
[2017-01-23] MEDS ORDERED: ATENOLOL 50 MG TAB PO SCH (12:00)
[2017-01-23] MEDS ORDERED: CHLORTHALIDONE 50 MG TAB PO SCH (13:00)
[2017-01-23] MEDS ORDERED: POTA10TA2 PO (13:19)
--- NOTE | 2017-01-23 14:13 | EC ---
Study Study Date:01/23/2017 STUDY CONCLUSIONS SUMMARY - Procedure narrative: Image quality was fair. The study was technically limited due to poor acoustic window availability. - Left ventricle: The cavity size was normal. Systolic function was normal. The estimated ejection fraction was in the range of 55% to 60%. Wall motion was normal; there were no regional wall motion abnormalities. Doppler parameters are consistent with abnormal left ventricular relaxation (grade 1 diastolic dysfunction). If LV function is below 40, please consider prescribing an ACEI or ARB or document rationale for non-use. PROCEDURE DATA STUDY STATUS: Elective. Procedure: Transthoracic echocardiography. Image quality was fair. The study was technically limited due to poor acoustic window availability. Scanning was performed from the parasternal, apical, and subcostal acoustic windows. Study completion: The patient tolerated the procedure well. Transthoracic echocardiography. M-mode, complete 2D, complete spectral Doppler, and color Doppler. Height: Height: 65in. Weight: Weight: 182.6lb. Body mass index: BMI: 30.5kg/m^2. Body surface area: BSA: 1.9m^2. Patient status: Inpatient. CARDIAC ANATOMY LEFT VENTRICLE: The cavity size was normal. Systolic function was normal. The estimated ejection fraction was in the range of 55% to 60%. Wall motion was normal; there were no regional wall motion abnormalities. Doppler parameters are consistent with abnormal left ventricular relaxation (grade 1 diastolic dysfunction). AORTIC VALVE: Probably trileaflet. Doppler: There was no stenosis. No significant regurgitation. Valve area: 1.29cm^2(VTI). Indexed valve area: 0.68cm^2/m^2 (VTI). Valve area: 1.24cm^2 (Vmax). Indexed valve area: 0.65cm^2/m^2 (Vmax). Mean gradient: 3mm Hg (S). MITRAL VALVE: The valve appears to be grossly normal. Doppler: There was no evidence for stenosis. Trace regurgitation. Peak gradient: 3mm Hg (D). RIGHT VENTRICLE: The cavity size was normal. PULMONIC VALVE: Not well visualized. Doppler: There was no evidence for stenosis. Trace regurgitation. TRICUSPID VALVE: The valve appears to be grossly normal. Doppler: There was no evidence for stenosis. Trace regurgitation. PERICARDIUM: There was no pericardial effusion. Patient weight: 182.6lb _Ejection fraction:_ 65-75% _Fractional shortening:_ 32% up to 5Kg 5-11.5Kg 11.6-22.9Kg 23-45Kg 45-57Kg Aortic Root 7-13 <17 13-22 17-27 17-27 LA diam 6-13 <23 24-38 33-47 37-40 RVID 10-17 7-15 7-15 7-18 8-17 LVIDd 12-22 <32 24-38 33-47 37-40 LVPW 2-4 3-6 5-7 6-8 7-8 IVS 2-4 3-6 5-7 6-8 7-8 BASIC MEASUREMENTS ADULT NORMAL Left ventricle LV internal dimension, ED, chordal *39.7 mm 43-52 level, PLAX LV internal dimension, ES, chordal 27 mm 23-38 level, PLAX Fractional shortening, chordal level, 32 % >29 PLAX LV posterior wall thickness, ED 8.86 mm IVS/LVPW ratio, ED 0.99 <1.3 Ventricular septum Septal thickness, ED 8.74 mm Aortic valve Leaflet separation 19 mm 15-26 Aorta Root diameter, ED 30 mm Left atrium Anterior-posterior dimension 28 mm Anterior-posterior dimension index 1.47 cm/m^2 <2.2 BASIC MEASUREMENTS ADULT NORMAL Aortic valve Leaflet separation 19 mm 15-26 DOPPLER MEASUREMENTS ADULT NORMAL Main pulmonary artery Pressure, S 29 mm Hg =30 Aortic valve Peak velocity, S 128 cm/s Mean velocity, S 86.9 cm/s VTI, S 24.6 cm Mean gradient, S 3 mm Hg Valve area, VTI 1.29 cm^2 Valve area index, VTI 0.68 cm^2/m^2 Valve area, Vmax 1.24 cm^2 Valve area index, Vmax 0.65 cm^2/m^2 Mitral valve Peak E-wave velocity 80.1 cm/s Peak A-wave velocity 105 cm/s Deceleration time *271 ms 150-230 Peak gradient, D 3 mm Hg Peak E/A ratio 0.8 Tricuspid valve Regurgitant peak velocity 227 cm/s Peak RV-RA gradient, S 21 mm Hg Maximal regurgitant velocity 227 cm/s Systemic veins Estimated CVP 10 mm Hg Right ventricle RV pressure, S *31 mm Hg <30 Pulmonic valve Peak velocity, S 63.2 cm/s LEGEND: Mean values are shown as u=mean value. Asterisk (*) waterman values outside specified normal range. Prepared and signed by Jaya Tena [id number]
[2017-01-23] MEDS ORDERED: ATOR40TA16 PO (14:27)
[2017-01-23 16:25] LABS: HEMOGLOBIN A1a 1.4 %; HEMOGLOBIN Ao 85.1 %; HEMOGLOBIN F 0.8 %; HEMOGLOBIN LA1C 1.5 %; HEMOGLOBIN P3 3.7 %
[2017-01-23] MEDS ORDERED: ATORVASTATIN 40 MG TAB PO SCH (21:00)
== END 2017-01-23 15:46 | disposition home or self-care (01) ==
LOC: PHED 09:52 → PHEDA 11:19 → PH3B 12:29
PROVIDERS: ADMIT Internal Medicine; ATTEND Internal Medicine
DX: G83.21 Monoplegia of upper limb affecting right dominant side (principal); I10 Essential (primary) hypertension; E78.5 Hyperlipidemia, unspecified; E03.9 Hypothyroidism, unspecified; F41.9 Anxiety disorder, unspecified; M19.90 Unspecified osteoarthritis, unspecified site; Z88.2 Allergy status to sulfonamides; Z88.8 Allergy status to other drugs, medicaments and biological substances
CPT/HCPCS: 70450; 70551; 71010; 80053; 80061; 81001; 82550; 82607; 82746; 82948; 83036; 84443; 84484; 85025; 85610; 85652; 85730; 87086; 93005; 93306; 93880; 97162; 97165; 99285; G0378; G8987; G8988; J7030

== ENCOUNTER → 2017-03-23 | Outpatient (CLI) | payer MEDICARE, OTHER ==
[~2017-03-23] MED LIST changes: +ASPI1TAB69 PO; +ATOR40TA16 PO; -ESTR42.5V VAGINAL; -IBUP800T23 PO; -MULT1TAB84 PO
[2017-03-23 12:58] LABS: RHEUMATOID FACTOR TRIGGER LESS THAN 10.0 IU/ML (0.0-14.9)
== END ==
LOC: PLAB 08:15
PROVIDERS: ATTEND Specialist
DX: M31.6 Other giant cell arteritis (principal); R53.1 Weakness
CPT/HCPCS: 36415; 85652; 86038; 86430

== ENCOUNTER 2017-06-03 06:49 | Emergency (ER) | payer MEDICARE, OTHER ==
[~2017-06-03] VITALS: Ht 165.1 cm; Wt 81.8 kg
[2017-06-03 06:57] VITALS: BP 134/73; PULSE 60; RESP 16; TEMP 97.7; O2SAT 99
[2017-06-03] MEDS ORDERED: COEN100T PO (07:21)
[2017-06-03] MEDS ORDERED: CYMB30CA PO (07:21)
[2017-06-03] MEDS ORDERED: AMIT10TA6 PO (07:21)
[2017-06-03] MEDS ORDERED: ASPI81CH CHEW (07:21)
[2017-06-03] MEDS ORDERED: LEVO88TA2 PO (07:21)
--- NOTE | 2017-06-03 07:32 | PD ---
HPI Chief Complaint: Eye Problems/Injury Time Seen by Provider: 07:09 Travel History International Travel<30 days: No Contact w/Intl Traveler<30days: No Traveled to known affect area: No History of Present Illness HPI 71-year-old female presents after she sprayed lemon eucalyptus oil insect repellent in her eyes when she was trying to get her upper neck. She states she is having burning now. She states she irrigated her eyes at home for about 5 minutes with water. She denies any other concurrent complaints. PFSH Past Medical History Arthritis: Yes (RIGHT KNEE) High Cholesterol: Yes Hypertension: Yes Inguinal Hernia: Yes (UMBVILICAL AND INGUINAL) Kidney Stones: Yes Immunizations Current: Yes Thyroid Disease: Yes Tetanus Vaccination: < 5 Years ?: Not Tubal Ligation: Yes Past Surgical History Eye Surgery: Yes Hysterectomy: Yes Other Surgery: Yes (tonsillectomy, bilatera; femoral hernia rpair. tubal ligation, hysterectomy) Social History Alcohol Use: Yes (SOCIALLY) Tobacco Use: No (NEVER) Substance Use: No Allergies-Medications (Allergen,Severity, Reaction): Coded Allergies: Sulfa (Sulfonamide Antibiotics) (Verified Allergy, Severe, HIVES, 06/03/17) pentazocine (Verified Allergy, Severe, Hallucinations, 06/03/17) Uncoded Allergies: seldane (Allergy, Severe, 01/07/16) palpitations Reported Meds & Prescriptions Reported Meds & Active Scripts Active Reported Cymbalta DR (Duloxetine HCl) 30 Mg Capdr 30 Mg PO DAILY Aspirin 81 Mg Chew 81 Mg CHEW DAILY Coenzyme Q10 (Ubidecarenone) 100 Mg Tab 100 Mg PO Amitriptyline (Amitriptyline HCl) 10 Mg Tab 10 Mg PO HS PRN Levothyroxine (Levothyroxine Sodium) 88 Mcg Tab 88 Mcg PO DAILY Potassium Chloride ER (Potassium Chloride) 10 Meq Tab 10 Meq PO BID Diphenhydramine (Diphenhydramine HCl) 25 Mg Cap 50 Mg PO HS PRN Chlorthalidone 25 Mg Tab 25 Mg PO DAILY Atenolol 50 Mg Tab 50 Mg PO DAILY Carafate (Sucralfate) 1 Gm Tab 1 Gm PO DIRECTED On empty stomach Omeprazole 20 Mg Tab 20 Mg PO DAILY Review of Systems Except as stated in HPI: all other systems reviewed are Neg Physical Exam Narrative GENERAL: Well-nourished, well-developed patient. SKIN: Warm and dry. HEAD: Normocephalic and atraumatic. EYES: No injection or drainage. Pupils are equal, extraocular movement intact, no foreign body noted ENT: No nasal drainage noted. NECK: Supple, trachea midline. CARDIOVASCULAR: Regular rate and rhythm RESPIRATORY: No increased effort. No accessory muscle use. EXTREMITIES: No edema. NEUROLOGICAL: Awake and alert. Motor and sensory grossly within normal limits. Normal speech. Data Data Last Documented VS Vital Signs Date Time Temp Pulse Resp B/P (MAP) Pulse Ox O2 Delivery O2 Flow Rate FiO2 06/03/17 06:57 97.7 60 16 134/73 (93) 99 Orders Orders Call Poison Control (06/03/17 07:19) Eye Irrigation (06/03/17 07:29) [facility] Medical Decision Making Medical Screen Exam Complete: Yes Emergency Medical Condition: Yes Differential Diagnosis Burn, foreign body, abrasion Narrative Course Patient without injection or foreign body noted on exam, pH is normal (7 bilaterally), will irrigate as per recommendation of poison control center Patient denies any new complaints and states that they are feeling better. Patient happy with care, all questions answered. Patient knows that follow up is incumbent on them and to return to the emergency room immediately if new or worsening symptoms develop. Patient given strict return precautions, vitals reviewed and are normal, agrees to further workup as an outpatient. Diagnosis Primary Impression: Eye irritation Patient Instructions: General Instructions Additional Instructions: return as needed, follow with eye doctor this week Med/Other Pt SpecificInfo: No Change to Meds Disposition: 01 DISCHARGE HOME Condition: Stable Ewelina Coelho MD Jun 03, 2017 07:32
== END 2017-06-03 08:00 | disposition home or self-care (01) ==
LOC: PHED 06:49
DX: H57.8 Other specified disorders of eye and adnexa (principal)
CPT/HCPCS: 99282